=== PATIENT | male | born 1985 | race Caucasian/White ===

== ENCOUNTER 2019-12-02 02:33 | Emergency (ER) | payer MEDICAID, OTHER ==
[~2019-12-02] VITALS: Ht 182.9 cm; Wt 108.9 kg
[2019-12-02 02:47] VITALS: BP 121/60
[2019-12-02] MEDS ORDERED: KETOROLAC 60 MG/2 ML VIAL IM ONE (03:00)
[2019-12-02 03:09] LABS: APPEARANCE,URINE CLEAR (CLEAR); BILIRUBIN,URINE NEGATIVE (NEGATIVE); BLOOD, URINE NEGATIVE (NEGATIVE); COLOR,URINE YELLOW (YELLOW); LEUKOCYTE ESTERASE ,URINE NEGATIVE (NEGATIVE); NITRITE, URINE NEGATIVE (NEGATIVE); UGLUCOSE NEGATIVE (NEGATIVE)
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
--- NOTE | 2019-12-02 03:14 | NUR ---
PT TRANSPORTED TO CT VIA WC Addendum: 12/02/19 at 0322 by MEDLENOREC PT TRANSPORTED TO RAD VIA W/C
--- NOTE | 2019-12-02 03:21 | NUR ---
PT BACK FROM CT VIA WC. Addendum: 12/02/19 at 0322 by DEMETRICE PT BACK FROM RAD VIA WC
[2019-12-02] MEDS ORDERED: MORPHINE SULFATE 2 MG/ML SYR IM ONE (03:55)
--- NOTE | 2019-12-02 04:29 | NUR ---
US AT BEDSIDE.
--- NOTE | 2019-12-02 05:21 | NUR ---
PT RESTING IN BED ASLEEP, NO RESPIRATORY DISTRESS NOTED, SYMETTRICAL CHEST RISE. NO C/O PAIN. ALL NEEDS MET. BED IN LOWEST POSITION, SIDE RAIL UP X1. WILL CONTINUE TO MONITOR.
--- NOTE | 2019-12-02 05:30 | NUR ---
DR. LARA AT BEDSIDE EXPLAINING RESULTS TO PT.
--- NOTE | 2019-12-02 05:33 | NUR ---
Patient discharged with v/s stable. Written and verbal after care instructions given and explained. Patient verbalized understanding. Ambulatory with steady gait. All questions addressed prior to discharge. Advised to follow up with PMD. Prescription of tramadol and motrin were given. Pt walk in steady gait and no other complains noted. pt d/c.
[2019-12-02 05:35] VITALS: BP 134/75
== END 2019-12-02 05:33 | disposition home or self-care (01) ==
LOC: MED 02:33
DX: S22.31XA Fracture of one rib, right side, initial encounter for closed fracture (principal); R03.0 Elevated blood-pressure reading, without diagnosis of hypertension; M54.9 Dorsalgia, unspecified; F12.90 Cannabis use, unspecified, uncomplicated; W20.8XXA Other cause of strike by thrown, projected or falling object, initial encounter; Y93.89 Activity, other specified; Y92.89 Other specified places as the place of occurrence of the external cause; Y99.8 Other external cause status
CPT/HCPCS: 71101; 76705; 81003; 96372; 99285; J1885; J2270; Q0092